=== PATIENT | male | born 1990 | race Caucasian/White ===

== ENCOUNTER 2017-11-09 00:26 | Emergency (ER) | payer BC ==
--- NOTE | 2017-11-09 00:59 | EDM.PDOC ---
ED HPI GENERAL MEDICAL PROBLEM - General Chief Complaint: ENT Problem Stated Complaint: BLOCKAGE IN RT EAR & DIFFICULTY BREATHING Time Seen by Provider: 11/09/17 00:55 - History of Present Illness INITIAL COMMENTS - FREE TEXT/NARRATIVE: HISTORY AND PHYSICAL: History of present illness: Patient 27-year-old male sensory concern of right ear pain denies other concern denies trauma Review of systems: As per history of present illness and below otherwise all systems reviewed and negative. Past medical history: As per history of present illness and as reviewed below otherwise noncontributory. Surgical history: As per history of present illness and as reviewed below otherwise noncontributory. Social history: No reported history of drug or alcohol abuse. Family history: As per history of present illness and as reviewed below otherwise noncontributory. Physical exam: HEENT: Atraumatic, normocephalic, pupils reactive, negative for conjunctival pallor or scleral icterus, mucous membranes moist, throat clear, neck supple, nontender, trachea midline. TM injected with ethmoid reflex external auditory canal also noted to be inflamed and injected Lungs: Clear to auscultation, breath sounds equal bilaterally, chest nontender. Heart: S1S2, regular, negative for clicks, rubs, or JVD. Abdomen: Soft, nondistended, nontender. Negative for masses or hepatosplenomegaly. Negative for costovertebral tenderness. Pelvis: Stable nontender. Genitourinary: Deferred. Rectal: Deferred. Extremities: Atraumatic, negative for cords or calf pain. Neurovascular unremarkable. Neuro: Awake, alert, oriented. Cranial nerves II through XII unremarkable. Cerebellum unremarkable. Motor and sensory unremarkable throughout. Exam nonfocal. Diagnostics: None Therapeutics: None Impression: #1 right otalgia #2 right otitis media/externa Definitive disposition and diagnosis as appropriate pending reevaluation and review of above. Ear Pain Score (Numeric/FACES): 5 - Related Data Allergies Allergy/AdvReac Type Severity Reaction Status Date / Time No Known Allergies Allergy Verified 11/09/17 00:40 Home Meds: Home Meds . [No Known Home Meds] 11/09/17 [History] Past Medical History - Past Health History Medical/Surgical History: Denies Medical/Surgical History Social & Family History - Tobacco Use Smoking Status *Q: Never Smoker ED ROS GENERAL - Review of Systems Review Of Systems: ROS reveals no pertinent complaints other than HPI. ED EXAM, GENERAL - Physical Exam Exam: See Below (See dictation) Course - Vital Signs Last Recorded V/S: Last Vital Signs Temp 36.8 C 11/09/17 00:38 Pulse 98 11/09/17 00:38 Resp 20 11/09/17 00:38 BP 162/83 H 11/09/17 00:38 Pulse Ox 99 11/09/17 00:38 Departure - Departure Time of Disposition: 00:58 Disposition: Home, Self-Care 01 Condition: Good Clinical Impression: Otitis externa - Discharge Information Referrals: PCP,None [Primary Care Provider] - Additional Instructions: The following information is given to patients seen in the emergency department who are being discharged to home. This information is to outline your options for follow-up care. We provide all patients seen in our emergency department with a follow-up referral. The need for follow-up, as well as the timing and circumstances, are variable depending upon the specifics of your emergency department visit. If you don't have a primary care physician on staff, we will provide you with a referral. We always advise you to contact your personal physician following an emergency department visit to inform them of the circumstance of the visit and for follow-up with them and/or the need for any referrals to a consulting specialist. The emergency department will also refer you to a specialist when appropriate. This referral assures that you have the opportunity for followup care with a specialist. All of these measure are taken in an effort to provide you with optimal care, which includes your followup. Under all circumstances we always encourage you to contact your private physician who remains a resource for coordinating your care. When calling for followup care, please make the office aware that this follow-up is from your recent emergency room visit. If for any reason you are refused follow-up, please contact the [facility] emergency department at and asked to speak to the emergency department charge nurse. MALLORIE [facility] [address] [place] [id number] Augmentin/Cortisporin as prescribed Motrin/Tylenol as directed follow-up primary care above called schedule routine appointment return as needed as discussed
== END 2017-11-09 01:09 | disposition home or self-care (01) ==
LOC: MW.ED 00:26
DX: H60.91 Unspecified otitis externa, right ear (principal)
CPT/HCPCS: 99282

== ENCOUNTER 2020-09-15 19:47 | Emergency (ER) | payer BC ==
[2020-09-15] MEDS ORDERED: Sodium Chloride 0.9% 10 ML Syringe FLUSH PRN (19:48)
[2020-09-15] MEDS ORDERED: Sodium Chloride 0.9% 2.5 ML Syringe FLUSH PRN (19:48)
[2020-09-15] MEDS ORDERED: cloNIDine 0.1 MG Tab PO ONE (19:56)
[2020-09-15] MEDS ORDERED: Sodium Chloride 0.9% 1,000 ML IV ONE (19:56)
--- NOTE | 2020-09-15 20:04 | EDM.PDOC ---
ED HPI GENERAL MEDICAL PROBLEM - General Chief Complaint: General Stated Complaint: HIGH BLOOD PRESSURE Time Seen by Provider: 09/15/20 19:53 Source of Information: Reports: Patient History Limitations: Reports: No Limitations - History of Present Illness INITIAL COMMENTS - FREE TEXT/NARRATIVE: HISTORY AND PHYSICAL: History of present illness: Patient is a 30-year-old male who presents to the emergency room with complaints of dizziness, chest pain and elevated blood pressure x2 days. He states he received the first dose of 2 of the uShip COVID-19 vaccine yesterday. Appro ximately 20 minutes after he started to feel dizzy and that his blood pressure was elevated. He states he has had past intermittent elevated blood pressure readings in which he will take Catapres for. He states this medication is available [id number] [place], has this medication available for when he needs it. He is adamant that he does not have a history of high blood pressure, "just occasional". After he took the Catapres his symptoms resolved. He felt improved. He was able to work all day today. 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 Instead of going home to take his Catapres he came to the emergency room. Denies any light sensitivity or noise sensitivity. Patient denies any fever, chills, change in vision, syncope or near syncope. Denies any chest pain, back pain, shortness of breath or cough. Denies any abdominal pain, nausea, vomiting, diarrhea, constipation or dysuria. Has not noted any blood in urine or stool. Patient has been eating and drinking appropriately. Review of systems: As per history of present illness and below otherwise all systems reviewed and negative. Past medical history: As per history of present illness and as reviewed below otherwise noncontributory. Surgical history: As per history of present illness and as reviewed below otherwise noncontributory. Social history: See social history for further information Family history: As per history of present illness and as reviewed below otherwise noncontributory. Physical exam: General: Well developed and well nourished 30 year old male. Alert and orientated x 3. Nontoxic in appearance and in no acute distress. Vital signs are stable and have been reviewed by me. Nursing notes were reviewed. HEENT: Atraumatic, normocephalic, pupils equal and reactive bilaterally, negative for conjunctival pallor or scleral icterus, mucous membranes moist, TMs normal bilaterally, throat clear, neck supple, nontender, trachea midline. No drooling or trismus noted. No meningeal signs. No hot potato voice noted. Lungs: Clear to auscultation bilaterally. No wheezes, rales, or rhonchi. Chest nontender. Normal work of breathing, no accessory muscles used. Heart: S1S2, regular rate and rhythm without overt murmur, gallops, or rubs. No JVD. No peripheral edema Abdomen: Soft, nondistended, nontender. Normoactive bowel sounds. Negative for masses or costovertebral tenderness. Pelvis: Stable nontender. Genitourinary/Rectal: Deferred. Skin: Intact, warm, dry. No lesions or rashes noted. Hematologic: No petechiae or purpra. Mucosa appropriate color and normal nail bed color and refill. Extremities: Atraumatic, moves all extremities per self without difficulty or deficits, negative for cords or calf pain. Neurovascular unremarkable. Neuro: Awake, alert, oriented. Cranial nerves II through XII unremarkable. Cerebellum unremarkable. Motor and sensory unremarkable throughout. Exam nonfocal. Psychiatric: Mood and affect are appropriate. Normal thought process. Answering questions appropriately. Notes: *This patient was seen and evaluated during the 2019 SARS-CoV-2 novel c oronavirus pandemic period. Community viral transmission is ongoing at time of this encounter and the emergency department is operating under pandemic response procedures. Patient's lab work is unremarkable. His blood pressure has improved since being here. He states he feels better since the IV fluids. We did discuss establishing care with a primary care provider to have his blood pressure r eevaluated as he is adamant he does not have a history of hypertension nor wanting treatment for this. I did inform him that it could be elevated today due to him not feeling well but he should continue to monitor this. I have talked with the patient about today's findings, in addition to providing specific details for plan of care. Reassessment at the time of disposition demonstrates that the patient is in no acute distress. The patient is stable for discharge, counseling was provided and we discussed in great detail signs and symptoms that would prompt them to return to the Emergency Department. Medication, follow up and supportive care measures were reviewed and discussed. Voices understanding and is agreeable to plan of care. Denies any further questions or concerns at this time. Diagnostics: CBC, CMP, troponin, EKG, chest x-ray, head CT Therapeutics: IV fluids, catapress Prescription: Declines Impression: Post vaccine adverse effects Plan: 1. You were evaluated today on an emergent basis. Your lab work, EKG, chest x- ray and head CT are normal. Continue to occasionally monitor your blood pressure as we discussed. If you continue to have elevated readings, consider going to primary care to have this treated. 2. You can alternate Tylenol and ibuprofen as needed for pain and fever management. 3. We encourage you to follow up with your primary care provider and/or r ecommended specialist in the next few days for re-evaluation and further care/management. 4. If your symptoms should worsen, new symptoms develop or any of the signs and symptoms we discussed should arise please return to the emergency room or call 911 (if needed). Definitive disposition and diagnosis as appropriate pending reevaluation and review of above. chest pain Pain Score (Numeric/FACES): 6 - Related Data Allergies Allergy/AdvReac Type Severity Reaction Status Date / Time No Known Allergies Allergy Verified 09/15/20 19:49 Home Meds: Home Meds . [No Known Home Meds] 11/09/17 [History] Past Medical History - Past Health History Medical/Surgical History: Denies Medical/Surgical History HEENT History: Reports: None Cardiovascular History: Reports: None Respiratory History: Reports: None Gastrointestinal History: Reports: None Genitourinary History: Reports: None Musculoskeletal History: Reports: None Neurological History: Reports: None Psychiatric History: Reports: None Endocrine/Metabolic History: Reports: None Insulin Pump Model and Unarmed Security Guard: None Hematologic History: Reports: None Immunologic History: Reports: None Oncologic (Cancer) History: Reports: None Dermatologic History: Reports: None - Infectious Disease History Infectious Disease History: Reports: None - Past Surgical History Head Surgeries/Procedures: Reports: None Social & Family History - Tobacco Use Tobacco Use Comment: states stop 2 weeks ago - Recreational Drug Use Recreational Drug Use: No ED ROS GENERAL - Review of Systems Review Of Systems: Comprehensive ROS is negative, except as noted in HPI. ED EXAM, GENERAL - Physical Exam Exam: See Below (See dication) Course - Vital Signs Last Recorded V/S: Last Vital Signs Temp 97.4 F 09/15/20 19:49 Pulse 90 09/15/20 19:49 Resp 18 09/15/20 19:49 BP 152/96 H 09/15/20 20:04 Pulse Ox 97 09/15/20 19:49 - Orders/Labs/Meds Orders: Active Orders 24 hr Category Date Time Status EKG Documentation Completion [RC] STAT Care 09/15/20 19:48 Active Chest 1V Frontal [CR] Stat Exams 09/15/20 19:48 Taken Head wo Cont [CT] Stat Exams 09/15/20 20:09 Taken Sodium Chloride 0.9% [Normal Saline] 1,000 ml Med 09/15/20 19:56 Active IV STAT Sodium Chloride 0.9% [Saline Flush] Med 09/15/20 19:48 Active 10 ml FLUSH ASDIRECTED PRN Sodium Chloride 0.9% [Saline Flush] Med 09/15/20 19:48 Active 2.5 ml FLUSH ASDIRECTED PRN Saline Lock Insert [OM.PC] Stat Oth 09/15/20 19:48 Ordered Medication Orders Sodium Chloride (Normal Saline) 1,000 mls @ 999 mls/hr IV STAT ONE Stop: 09/15/20 20:56 Last Admin: 09/15/20 20:04 Dose: 999 mls/hr Documented by: [email or web address] Sodium Chloride (Sodium Chloride 0.9% 10 Ml Syringe) 10 ml FLUSH ASDIRECTED PRN PRN Reason: Keep Vein Open Last Admin: 09/15/20 19:54 Dose: 10 ml Documented by: CASIMIRO Sodium Chloride (Sodium Chloride 0.9% 2.5 Ml Syringe) 2.5 ml FLUSH ASDIRECTED PRN PRN Reason: Keep Vein Open Last Admin: 09/15/20 19:54 Dose: 2.5 ml Documented by: CASIMIRO Labs: Laboratory Tests 09/15/20 09/15/20 Range/Units 19:50 19:50 WBC 12.62 H (4.0-11.0) K/uL RBC 4.93 (4.50-5.90) M/uL Hgb 15.1 (13.0-17.0) g/dL Hct 43.2 (38.0-50.0) % MCV 87.6 (80.0-98.0) fL MCH 30.6 (27.0-32.0) pg MCHC 35.0 (31.0-37.0) g/dL RDW Std Deviation 39.1 (28.0-62.0) fl RDW Coeff of Anuj 12 (11.0-15.0) % Plt Count 373 (150-400) K/uL MPV 9.10 (7.40-12.00) fL Neut % (Auto) 38.4 L (48.0-80.0) % Lymph % (Auto) 47.1 H (16.0-40.0) % [place] % (Auto) 12.6 (0.0-15.0) % Eos % (Auto) 1.5 (0.0-7.0) % Baso % (Auto) 0.4 (0.0-1.5) % Neut # (Auto) 4.9 (1.4-5.7) K/uL Lymph # (Auto) 5.9 H (0.6-2.4) K/uL [place] # (Auto) 1.6 H (0.0-0.8) K/uL Eos # (Auto) 0.2 (0.0-0.7) K/uL Baso # (Auto) 0.1 (0.0-0.1) K/uL Nucleated RBC % 0.0 /100WBC Nucleated RBCs # 0 K/uL Sodium 139 (136-148) mmol/L Potassium 3.3 L (3.5-5.1) mmol/L Chloride 101 (98-107) mmol/L Carbon Dioxide 26.0 (21.0-32.0) mmol/L BUN 20 H (7.0-18.0) mg/dL Creatinine 1.1 (0.8-1.3) mg/dL Est Cr Clr Drug Dosing 106.80 mL/min Estimated GFR (MDRD) > 60.0 ml/min Glucose 105 (74-106) mg/dL Calcium 8.1 L (8.5-10.1) mg/dL Total Bilirubin 0.4 (0.2-1.0) mg/dL AST 20 (15-37) IU/L ALT 44 (14-63) IU/L Alkaline Phosphatase 96 (46-116) U/L Troponin I < 0.050 (0.000-0.056) ng/mL Total Protein 7.7 (6.4-8.2) g/dL Albumin 4.0 (3.4-5.0) g/dL Globulin 3.7 (2.6-4.0) g/dL Albumin/Globulin Ratio 1.1 (0.9-1.6) Meds: Medications Generic Name Dose Route Start Last Admin Trade Name Freq PRN Reason Stop Dose Admin Sodium Chloride 1,000 mls @ 999 mls/hr 09/15/20 19:56 09/15/20 20:04 Normal Saline IV 09/15/20 20:56 999 mls/hr STAT ONE Administration Sodium Chloride 10 ml 09/15/20 19:48 09/15/20 19:54 Sodium Chloride 0.9% 10 Ml Syringe FLUSH 10 ml ASDIRECTED PRN Administration Keep Vein Open Sodium Chloride 2.5 ml 09/15/20 19:48 09/15/20 19:54 Sodium Chloride 0.9% 2.5 Ml Syringe FLUSH 2.5 ml ASDIRECTED PRN Administration Keep Vein Open Discontinued Medications Generic Name Dose Route Start Last Admin Trade Name Freq PRN Reason Stop Dose Admin Clonidine HCl 0.1 mg 09/15/20 19:56 09/15/20 20:04 Clonidine 0.1 Mg Tab PO 09/15/20 19:57 0.1 mg ONETIME ONE Administration Departure - Departure Time of Disposition: 20:52 Disposition: Home, Self-Care 01 Clinical Impression: Fatigue after COVID-19 vaccination - Discharge Information Forms: ED Department Discharge Additional Instructions: The following information is given to patients seen in the emergency department who are being discharged to home. This information is to outline your options for follow-up care. We provide all patients seen in our emergency department with a follow-up referral. The need for follow-up, as well as the timing and circumstances, are variable depending upon the specifics of your emergency department visit. If you don't have a primary care physician on staff, we will provide you with a referral. We always advise you to contact your personal physician following an emergency department visit to inform them of the circumstance of the visit and for follow-up with them and/or the need for any referrals to a consulting specialist. The emergency department will also refer you to a specialist when appropriate. This referral assures that you have the opportunity for follow-up care with a specialist. All of these measure are taken in an effort to provide you with optimal care, which includes your follow-up. Under all circumstances we always encourage you to contact your private physician who remains a resource for coordinating your care. When calling for follow-up care, please make the office aware that this follow-up is from your recent emergency room visit. If for any reason you are refused follow-up, please contact the [facility] Emergency Department at and asked to speak to the emergency department charge nurse. [facility] [address] [place] [id number] [facility] [address] [place] [id number] Thank you for choosing the [facility] emergency department in [place] for your medical needs today. It was a pleasure caring for you. Today you were seen in the emergency department for elevated BP, chest pain, and headache. 1. You were evaluated today on an emergent basis. Your lab work, EKG, chest x- ray and head CT are normal. Continue to occasionally monitor your blood pressure as we discussed. If you continue to have elevated readings, consider going to primary care to have this treated. 2. You can alternate Tylenol and ibuprofen as needed for pain and fever management. 3. We encourage you to follow up with your primary care provider and/or recommended specialist in the next few days for re-evaluation and further care /management. 4. If your symptoms should worsen, new symptoms develop or any of the signs and symptoms we discussed should arise please return to the emergency room or call 911 (if needed). Sepsis Event Note (ED) - Evaluation Sepsis Screening Result: No Definite Risk - Focused Exam Vital Signs: Vital Signs Temp Pulse Resp BP BP Pulse Ox 09/15/20 20:04 152/96 H 09/15/20 19:49 97.4 F 90 18 165/106 H 97 - My Orders Last 24 Hours: My Active Orders 09/15/20 19:48 EKG Documentation Completion [RC] STAT Chest 1V Frontal [CR] Stat Sodium Chloride 0.9% [Saline Flush] 10 ml FLUSH ASDIRECTED PRN Sodium Chloride 0.9% [Saline Flush] 2.5 ml FLUSH ASDIRECTED PRN Saline Lock Insert [OM.PC] Stat 09/15/20 19:56 Sodium Chloride 0.9% [Normal Saline] 1,000 ml IV STAT 09/15/20 20:09 Head wo Cont [CT] Stat - Assessment/Plan Last 24 Hours: My Active Orders 09/15/20 19:48 EKG Documentation Completion [RC] STAT Chest 1V Frontal [CR] Stat Sodium Chloride 0.9% [Saline Flush] 10 ml FLUSH ASDIRECTED PRN Sodium Chloride 0.9% [Saline Flush] 2.5 ml FLUSH ASDIRECTED PRN Saline Lock Insert [OM.PC] Stat 09/15/20 19:56 Sodium Chloride 0.9% [Normal Saline] 1,000 ml IV STAT 09/15/20 20:09 Head wo Cont [CT] Stat
--- NOTE | 2020-09-15 20:14 | PCM.EKG ---
#1 Interpretation EKG Interpretation Comments: EKG: As interpreted by ER physician: Mikala: Nonspecific ST-T wave abnormalities Normal axis No evidence of ST elevation IA Normal sinus rhythm heart rate of 73
[2020-09-15 20:28] LABS: BLOOD UREA NITROGEN,BUN 20 mg/dL (7.0-18.0); CHLORIDE,CL 101 mmol/L (98-107); GLUCOSE RANDOM 105 mg/dL (74-106); POTASSIUM,K 3.3 mmol/L (3.5-5.1); SODIUM,NA 139 mmol/L (136-148)
--- NOTE | 2020-09-15 20:51 | CT ---
INDICATION: Headache TECHNIQUE: CT head without contrast. COMPARISON: None FINDINGS: CSF spaces: Within normal limits for age. Brain parenchyma: The madera-white differentiation is normal. No sign of mass, hemorrhage, or midline shift. Skull base and calvarium: The visualized paranasal sinuses and mastoid air cells demonstrate no acute or significant findings. The visualized orbits are grossly unremarkable. No skull fractures. IMPRESSION: Unremarkable noncontrast head CT. Please note that all CT scans at this facility use dose modulation, iterative reconstruction, and/or weight-based dosing when appropriate to reduce radiation dose to as low as reasonably achievable. Dictated by Nehal Mendoza MD @ 09/15/2020 8:50:[address] Nehal Mendoza @ Sep 15 2020 8:50PM
--- NOTE | 2020-09-15 20:52 | CR ---
INDICATION: Chest pain TECHNIQUE: Chest radiograph 1 view COMPARISON: None FINDINGS: Mediastinum: The mediastinum is normal in appearance. The heart silhouette is normal in size and morphology. Lung: Both lungs are unremarkable in appearance. No sign of pleural effusion seen. No pneumothorax is identified. Bone and Soft tissue: Unremarkable for age. IMPRESSION: 1. No acute cardiopulmonary disease is seen. Dictated by: Adrian Delaney MD @ 09/15/2020 20:49:44 (Electronically Signed)
== END 2020-09-15 21:00 | disposition home or self-care (01) ==
LOC: MW.ED 19:47
DX: R53.83 Other fatigue (principal); T50.B95A Adverse effect of other viral vaccines, initial encounter
CPT/HCPCS: 70450; 71045; 80053; 84484; 85025; 93005; 99285; A9270; J7030; 93010; 99283

== ENCOUNTER 2020-09-19 16:08 | Emergency (ER) | payer BC ==
[2020-09-19 17:07] LABS: BLOOD UREA NITROGEN,BUN 24 mg/dL (7.0-18.0); CARBON DIOXIDE,CO2 29.9 mmol/L (21.0-32.0); CHLORIDE,CL 99 mmol/L (98-107); GLUCOSE RANDOM 105 mg/dL (74-106); POTASSIUM,K 4.3 mmol/L (3.5-5.1); SODIUM,NA 138 mmol/L (136-148)
[2020-09-19] MEDS ORDERED: amLODIPine 5 MG Tab PO ONE (17:55)
[2020-09-19] MEDS ORDERED: Famotidine 20 MG Tab PO ONE (17:56)
[2020-09-19] MEDS ORDERED: Alum Hydrox/Mag Hydrox/Simeth 15 ML, Lidocaine 2% 5 ML PO ONE ×2 (17:56)
--- NOTE | 2020-09-19 17:59 | EDM.PDOC ---
ED HPI GENERAL MEDICAL PROBLEM - General Chief Complaint: General Stated Complaint: chest pain Time Seen by Provider: 09/19/20 17:15 - History of Present Illness INITIAL COMMENTS - FREE TEXT/NARRATIVE: CHIEF COMPLAINT(S): Chest pain HISTORY OF PRESENT ILLNESS: This is a 30-year-old man with a recent evaluation for chest pain who was diagnosed with hypertension who comes to the emergency department with a chief complaint of chest pain. The patient states that he followed our recommendations and followed up with primary care physician. He states that he went to the appointment and given the chest pain and the left- sided numbness they sent him back to the emergency department. He states that since discharge he has had intermittent chest pain which he describes as sharp and short-lived lasting a couple of seconds. He rates this pain as 4-5 out of 10. He denies any associated shortness of breath, nausea, vomiting, diaphoresis. He states that his symptoms mainly happen at work. 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 He states that he intermittently is experiencing left-sided body numbness and denies any trouble walking, speaking, or swallowing. He states that he is currently asymptomatic and is only here because he was told to come to the emergency department. He states that they did not give him his blood pressure medication at the primary care clinic. In addition he is concerned because this started after his first Pfizer vaccine. REVIEW OF SYSTEMS: Constitutional: Denies fever, chills. Eyes: Denies eye pain Ears, Nose, Mouth, & Throat: Denies earache Cardiovascular: Denies positive for intermittent chest pain, Respiratory: Denies shortness of breath Gastrointestinal: Denies Nausea, vomiting, diarrhea, hematochezia. Genitourinary: Denies hematuria Skin:Denies a rash MSK: Denies joint pain Neurological: Positive for left-sided body numbness denies blurred vision, numbness, tingling, weakness Psychiatric: Denies depression PAST MEDICAL HISTORY: As per history of present illness and as reviewed below otherwise noncontributory. SURGICAL HISTORY: As per history of present illness and as reviewed below otherwise noncontributory. SOCIAL HISTORY: As per history of present illness and as reviewed below otherwise noncontributory. FAMILY HISTORY: As per history of present illness and as reviewed below otherwise noncontributory. EXAMINATION OF ORGAN SYSTEMS/BODY AREAS: Constitutional: Blood pressure is 151/88, heart rate 72, respiratory rate 18 with an oxygen saturation 97% on room air. Temperature 36.4 General: Overall well-appearing man who is in no acute distress Psychiatric: Appropriate mood and affect. Eyes: No scleral icterus or conjunctival erythema pupils are equal round reactive to light. Extraocular movements intact. No vertical horizontal nystagmus. ENMT: Moist mucous membranes. No pharyngeal erythema Cardiovascular: Regular, rate, and rhythm. No gallops, murmurs, or rubs. Bilateral upper extremity pulses symmetric and intact. No peripheral edema. No JVD. Respiratory: Lungs clear to auscultation bilaterally. No wheezes, rales, or rhonchi. Gastrointestinal: Soft, non-tender, non-distended. Normoactive bowel sounds Genitourinary: No suprapubic tenderness Musculoskeletal: Normal range of motion. Skin: No lesions or abrasions. Neurological: AOx4. CN grossly intact. Stregth 5/5 in bilateral upper and lower extremity. Sensation is intact bilaterally in upper and lower extremity. Gait appears normal. Finger to nose, heel to hale, rapid alternating movements intact. MEDICAL DECISION MAKING AND COURSE IN THE ED WITH INTERPRETATION/REVIEW OF DIAGNOSTIC STUDIES: This is a 30-year-old man and with a past medical history of recently diagnosed hypertension who comes to the emergency department with intermittent chest pain and left-sided numbness who also reports some anxiety after receiving his Pfizer vaccine. At this time the patient is mildly hypertensive and his neurological exam is completely normal. I did review the patient's record and he did have a CT head and a cardiac work-up all of which were normal. At this time we did obtain a repeat EKG which not reveal any acute signs of ischemia. He did not want a repeat chest x-ray. I do not believe repeat labs at this time are indicated as the patient is well-appearing and is low risk. At this time I did contact poison control to discuss side effects of anhydrous ammonia. They stated that with anhydrous ammonia that the symptoms are likely respiratory such as burning in the eyes, shortness of breath. They state that there is no known cardiac or neurological side effects. At this time I do believe his symptoms are likely secondary to anxiety and hypertension that is uncontrolled. We we will provide the patient with amlodipine 5 mg. I did discuss with him at this time that he should continue to take the blood pressure medication follow-up with the primary care physician. I discussed that if he had any new or worsening symptoms he should return to the emergency department. He was amenable discharge at this time and had no further questions. In addition I did discuss with patient we did place him on the quick cardiac follow-up list. I did provide him with the contact information to make an appointment. DISPOSITION: The patient was discharged home in stable condition. The patient will follow up with primary care physician CONDITION: Fair PROCEDURES: None FINAL IMPRESSION(S)/DIAGNOSES: 1. Acute atypical chest pain 2. Acute left-sided paresthesias 3. Hypertension Lew Cordero M.D. lungs and heart Pain Score (Numeric/FACES): 8 - Related Data Allergies Allergy/AdvReac Type Severity Reaction Status Date / Time No Known Allergies Allergy Verified 09/15/20 19:49 Home Meds: Home Meds Famotidine [Pepcid] 40 mg PO BEDTIME #14 tablet 09/19/20 [Rx] amLODIPine [Norvasc] 5 mg PO DAILY #30 tab 09/19/20 [Rx] Past Medical History - Past Health History Medical/Surgical History: Denies Medical/Surgical History HEENT History: Reports: None Cardiovascular History: Reports: None Respiratory History: Reports: None Gastrointestinal History: Reports: None Genitourinary History: Reports: None Musculoskeletal History: Reports: None Neurological History: Reports: None Psychiatric History: Reports: None Endocrine/Metabolic History: Reports: None Insulin Pump Model and Airline Operations Agent: None Hematologic History: Reports: None Immunologic History: Reports: None Oncologic (Cancer) History: Reports: None Dermatologic History: Reports: None - Infectious Disease History Infectious Disease History: Reports: None - Past Surgical History Head Surgeries/Procedures: Reports: None ED ROS GENERAL - Review of Systems Review Of Systems: See Below ED EXAM, GENERAL - Physical Exam Exam: See Below Course - Vital Signs Last Recorded V/S: Last Vital Signs Temp 36.4 C 09/19/20 16:23 Pulse 78 09/19/20 18:17 Resp 17 09/19/20 18:17 BP 141/95 H 09/19/20 18:34 Pulse Ox 97 09/19/20 18:17 - Orders/Labs/Meds Labs: Laboratory Tests 09/19/20 09/19/20 Range/Units 16:31 16:31 WBC 11.76 H (4.0-11.0) K/uL RBC 5.18 (4.50-5.90) M/uL Hgb 15.8 (13.0-17.0) g/dL Hct 45.3 (38.0-50.0) % MCV 87.5 (80.0-98.0) fL MCH 30.5 (27.0-32.0) pg MCHC 34.9 (31.0-37.0) g/dL RDW Std Deviation 38.3 (28.0-62.0) fl RDW Coeff of Anuj 12 (11.0-15.0) % Plt Count 395 (150-400) K/uL MPV 9.10 (7.40-12.00) fL Neut % (Auto) 54.3 (48.0-80.0) % Lymph % (Auto) 35.5 (16.0-40.0) % [place] % (Auto) 8.8 (0.0-15.0) % Eos % (Auto) 1.1 (0.0-7.0) % Baso % (Auto) 0.3 (0.0-1.5) % Neut # (Auto) 6.4 H (1.4-5.7) K/uL Lymph # (Auto) 4.2 H (0.6-2.4) K/uL [place] # (Auto) 1.0 H (0.0-0.8) K/uL Eos # (Auto) 0.1 (0.0-0.7) K/uL Baso # (Auto) 0.0 (0.0-0.1) K/uL Nucleated RBC % 0.0 /100WBC Nucleated RBCs # 0 K/uL Sodium 138 (136-148) mmol/L Potassium 4.3 (3.5-5.1) mmol/L Chloride 99 (98-107) mmol/L Carbon Dioxide 29.9 (21.0-32.0) mmol/L BUN 24 H (7.0-18.0) mg/dL Creatinine 1.2 (0.8-1.3) mg/dL Est Cr Clr Drug Dosing TNP Estimated GFR (MDRD) > 60.0 ml/min Glucose 105 (74-106) mg/dL Calcium 8.8 (8.5-10.1) mg/dL Total Bilirubin 0.3 (0.2-1.0) mg/dL AST 23 (15-37) IU/L ALT 44 (14-63) IU/L Alkaline Phosphatase 83 (46-116) U/L Troponin I < 0.050 (0.000-0.056) ng/mL Total Protein 8.2 (6.4-8.2) g/dL Albumin 4.2 (3.4-5.0) g/dL Globulin 4.0 (2.6-4.0) g/dL Albumin/Globulin Ratio 1.0 (0.9-1.6) Meds: Medications Discontinued Medications Generic Name Dose Route Start Last Admin Trade Name Freq PRN Reason Stop Dose Admin Amlodipine Besylate 5 mg 09/19/20 17:55 09/19/20 18:13 Amlodipine 5 Mg Tab PO 09/19/20 17:56 5 mg ONETIME ONE Administration Al Hydroxide/Mg Hydroxide 15 0 ml 09/19/20 17:56 09/19/20 18:12 ml/ Lidocaine HCl 5 ml PO 09/19/20 17:57 1 each ONETIME ONE Administration Famotidine 20 mg 09/19/20 17:56 09/19/20 18:13 Famotidine 20 Mg Tab PO 09/19/20 17:57 20 mg ONETIME ONE Administration Departure - Departure Time of Disposition: 17:58 Disposition: Home, Self-Care 01 Condition: Fair Clinical Impression: Hypertension - Discharge Information *PRESCRIPTION DRUG MONITORING PROGRAM REVIEWED*: No *COPY OF PRESCRIPTION DRUG MONITORING REPORT IN PATIENT MARIA ALEJANDRA: No Prescriptions: amLODIPine [Norvasc] 5 mg PO DAILY #30 tab Famotidine [Pepcid] 40 mg PO BEDTIME #14 tablet Instructions: Nonspecific Chest Pain, Adult, [id number], Hypertension, Adult, [id number] Referrals: Shobha Serrano MD [Primary Care Provider] - Danae Hale MD [Physician] - Forms: ED Department Discharge Additional Instructions: You evaluate today on an emergent basis. At this time your physical exam was normal and your blood pressure was mildly elevated. At this time I did contact the Poison Control Center regarding the exposure to ammonia. They stated that the symptoms you are experiencing are not typical. You mainly get respiratory symptoms from this exposure. We do recommend the use of a facemask while using this chemical. In addition I do recommend that you follow-up with cardiology within 3 to 5 days for further evaluation. Numbers provided below. Please take your medications as prescribed. If you have any new or worsening symptoms you are welcome to return to the emergency department. [facility] [address] [place] [address] [facility] [address] [place] [id number] The patient is informed of any results of their evaluation and diagnostic workup and all questions are answered. They are given discharge instructions and return precautions. The patient is stable for discharge. The patient states they understand and agree with the plan and that they will return if their symptoms get worse or if they have any new concerns. The following information is given to patients seen in the emergency department who are being discharged to home. This information is to outline your options for follow-up care. We provide all patients seen in our emergency department with a follow-up referral. The need for follow-up, as well as the timing and circumstances, are variable depending upon the specifics of your emergency department visit. If you don't have a primary care physician on staff, we will provide you with a referral. We always advise you to contact your personal physician following an emergency department visit to inform them of the circumstance of the visit and for follow-up with them and/or the need for any referrals to a consulting specialist. The emergency department will also refer you to a specialist when appropriate. This referral assures that you have the opportunity for follow-up care with a specialist. All of these measure are taken in an effort to provide you with optimal care, which includes your follow-up. Under all circumstances we always encourage you to contact your private physician who remains a resource for coordinating your care. When calling for follow-up care, please make the office aware that this follow-up is from your recent emergency room visit. If for any reason you are refused follow-up, please contact the [facility] Emergency Department at and asked to speak to the emergency department charge nurse.
--- NOTE | 2020-09-19 19:52 | PCM.EKG ---
#1 Interpretation EKG Date: 09/19/20 Time: 16:20 Rhythm: NSR Rate (Beats/Min): 72 [place]: Normal P-Wave: Present QRS: Normal ST-T: Normal QT: Normal Comparison: No Change (09/15/20) EKG Interpretation Comments: sinus rhythm
== END 2020-09-19 18:34 | disposition home or self-care (01) ==
LOC: MW.ED 16:08
DX: I10 Essential (primary) hypertension (principal); R20.2 Paresthesia of skin; Z79.899 Other long term (current) drug therapy
CPT/HCPCS: 36415; 80053; 84484; 85025; 93005; 99285; A9270; 99283

== ENCOUNTER 2020-09-29 09:53 | Emergency (ER) | payer BC ==
[2020-09-29] MEDS ORDERED: Sodium Chloride 0.9% 2.5 ML Syringe FLUSH PRN (09:54)
[2020-09-29] MEDS ORDERED: Aspirin 81 MG Tab.Chew PO ONE (09:54)
[2020-09-29] MEDS ORDERED: Sodium Chloride 0.9% 10 ML Syringe FLUSH PRN (09:54)
--- NOTE | 2020-09-29 10:06 | EDM.PDOC ---
ED HPI GENERAL MEDICAL PROBLEM - General Stated Complaint: DIFF BREATHING, HIGH B/P Time Seen by Provider: 09/29/20 09:54 Source of Information: Reports: Patient - History of Present Illness INITIAL COMMENTS - FREE TEXT/NARRATIVE: 30 yo male presenting with left sided chest pain and left-sided neck pain. The chest discomfort has been going on for 2 weeks intermittently. Came back again last night. Now he feels like the left side of his face/ears/jaw/neck are painful and appear swollen. No fevers or chills. He does report his blood pressure was elevated before coming in. Prior history of elevated blood pressure but stopped taking the amlodipine because he did not feel that it helped lower his blood pressure. No cough or shortness of breath. He does report that the chest discomfort started after receiving his Covid shot 2 weeks ago. Onset: Today left face Pain Score (Numeric/FACES): 7 - Related Data Allergies Allergy/AdvReac Type Severity Reaction Status Date / Time No Known Allergies Allergy Verified 09/29/20 09:56 Home Meds: Home Meds Famotidine [Pepcid] 40 mg PO BEDTIME #14 tablet 09/19/20 [Rx] amLODIPine [Norvasc] 5 mg PO DAILY #30 tab 09/19/20 [Rx] Azithromycin [Zithromax] 250 mg PO DAILY #6 tab 09/29/20 [Rx] Past Medical History - Past Health History Medical/Surgical History: Denies Medical/Surgical History HEENT History: Reports: None Cardiovascular History: Reports: None Respiratory History: Reports: None Gastrointestinal History: Reports: None Genitourinary History: Reports: None Musculoskeletal History: Reports: None Neurological History: Reports: None Psychiatric History: Reports: None Endocrine/Metabolic History: Reports: None Insulin Pump Model and Water Main Installer Helper: None Hematologic History: Reports: None Immunologic History: Reports: None Oncologic (Cancer) History: Reports: None Dermatologic History: Reports: None - Infectious Disease History Infectious Disease History: Reports: None - Past Surgical History Head Surgeries/Procedures: Reports: None Social & Family History - Tobacco Use Tobacco Use Status *Q: Former Tobacco User (Quit 3 weeks ago) ED ROS GENERAL - Review of Systems Review Of Systems: See Below Constitutional: Reports: No Symptoms Respiratory: Reports: No Symptoms Cardiovascular: Reports: Chest Pain GI/Abdominal: Reports: No Symptoms Neurological: Reports: No Symptoms ED EXAM, GENERAL - Physical Exam Exam: See Below Exam Limited By: No Limitations General Appearance: Alert, WD/WN, No Apparent Distress Ears: Normal External Exam Nose: Normal Inspection Throat/Mouth: Normal Lips, Normal Teeth, Normal Oropharynx, Normal Voice, No Airway Compromise Head: Atraumatic, Facial Swelling (Mild, Left side of face) Neck: Full Range of Motion, Other (Mild tenderness left anterior neck. Mild swelling) Respiratory/Chest: No Respiratory Distress Cardiovascular: Regular Rate, Rhythm GI/Abdominal: Soft, Non-Tender Back Exam: Normal Inspection Extremities: Normal Inspection, Normal Range of Motion Neurological: Alert, Oriented, Normal Cognition Psychiatric: Normal Affect, Normal Mood Skin Exam: Warm, Dry, Intact, Normal Color, No Rash Lymphatic: Other (Left neck anterior tenderness, possible adenopathy) #1 Interpretation EKG Date: 09/29/20 Time: 09:49 Rhythm: NSR [place]: Normal P-Wave: Present QRS: Normal ST-T: Other (Nonspecific ST elevation, likely early repolarization) QT: Normal Course - Vital Signs Text/Narrative:: Neck pain, mild neck swelling, facial pain and swelling. Some mild dental pain. Chest pain ongoing for 2 weeks. EKG with no ischemia, troponin negative. CT neck shows no soft tissue mass nor focal area of infection. Vasculature appears patent with no clot. CT scan does show sinusitis. Symptoms have been ongoing for about 2 weeks and therefore will treat with antibiotics at this time as this may be bacterial. Last Recorded V/S: Last Vital Signs Temp 98 F 09/29/20 09:54 Pulse 62 09/29/20 11:45 Resp 17 09/29/20 11:45 BP 127/82 09/29/20 11:45 Pulse Ox 97 09/29/20 11:45 - Orders/Labs/Meds Orders: Active Orders 24 hr Category Date Time Status EKG Documentation Completion [RC] STAT Care 09/29/20 09:55 Active Sodium Chloride 0.9% [Saline Flush] Med 09/29/20 09:54 Active 10 ml FLUSH ASDIRECTED PRN Sodium Chloride 0.9% [Saline Flush] Med 09/29/20 09:54 Active 2.5 ml FLUSH ASDIRECTED PRN Saline Lock Insert [OM.PC] Stat Oth 09/29/20 09:54 Ordered Medication Orders Sodium Chloride (Sodium Chloride 0.9% 10 Ml Syringe) 10 ml FLUSH ASDIRECTED PRN PRN Reason: Keep Vein Open Last Admin: 09/29/20 10:20 Dose: 10 ml Documented by: ELDER Sodium Chloride (Sodium Chloride 0.9% 2.5 Ml Syringe) 2.5 ml FLUSH ASDIRECTED PRN PRN Reason: Keep Vein Open Last Admin: 09/29/20 10:20 Dose: 2.5 ml Documented by: ELDER Labs: Laboratory Tests 09/29/20 09/29/20 09/29/20 Range/Units 10:02 10:02 10:25 WBC 10.09 (4.0-11.0) K/uL RBC 5.09 (4.50-5.90) M/uL Hgb 15.5 (13.0-17.0) g/dL Hct 44.4 (38.0-50.0) % MCV 87.2 (80.0-98.0) fL MCH 30.5 (27.0-32.0) pg MCHC 34.9 (31.0-37.0) g/dL RDW Std Deviation 38.3 (28.0-62.0) fl RDW Coeff of Anuj 12 (11.0-15.0) % Plt Count 391 (150-400) K/uL MPV 9.20 (7.40-12.00) fL Neut % (Auto) 51.2 (48.0-80.0) % Lymph % (Auto) 40.6 H (16.0-40.0) % [place] % (Auto) 7.4 (0.0-15.0) % Eos % (Auto) 0.5 (0.0-7.0) % Baso % (Auto) 0.3 (0.0-1.5) % Neut # (Auto) 5.2 (1.4-5.7) K/uL Lymph # (Auto) 4.1 H (0.6-2.4) K/uL [place] # (Auto) 0.8 (0.0-0.8) K/uL Eos # (Auto) 0.1 (0.0-0.7) K/uL Baso # (Auto) 0.0 (0.0-0.1) K/uL Nucleated RBC % 0.0 /100WBC Nucleated RBCs # 0 K/uL INR 1.02 Sodium 139 (136-148) mmol/L Potassium 3.6 (3.5-5.1) mmol/L Chloride 101 (98-107) mmol/L Carbon Dioxide 27.6 (21.0-32.0) mmol/L BUN 16 (7.0-18.0) mg/dL Creatinine 1.0 (0.8-1.3) mg/dL Est Cr Clr Drug Dosing 117.48 mL/min Estimated GFR (MDRD) > 60.0 ml/min Glucose 119 H (74-106) mg/dL Calcium 9.6 (8.5-10.1) mg/dL Troponin I < 0.050 (0.000-0.056) ng/mL Meds: Medications Generic Name Dose Route Start Last Admin Trade Name Katy PRN Reason Stop Dose Admin Sodium Chloride 10 ml 09/29/20 09:54 09/29/20 10:20 Sodium Chloride 0.9% 10 Ml Syringe FLUSH 10 ml ASDIRECTED PRN Administration Keep Vein Open Sodium Chloride 2.5 ml 09/29/20 09:54 09/29/20 10:20 Sodium Chloride 0.9% 2.5 Ml Syringe FLUSH 2.5 ml ASDIRECTED PRN Administration Keep Vein Open Discontinued Medications Generic Name Dose Route Start Last Admin Trade Name Katy PRN Reason Stop Dose Admin Aspirin 324 mg 09/29/20 09:54 09/29/20 10:20 Aspirin 81 Mg Tab.Chew PO 09/29/20 09:55 324 mg ONETIME ONE Administration Iopamidol 75 ml 09/29/20 11:23 09/29/20 11:26 Iopamidol 755 Mg/Ml 500 Ml Multipack Bottle IVPUSH 09/29/20 11:24 75 ml ONETIME ONE Administration - Re-Assessments/Exams Free Text/Narrative Re-Assessment/Exam: 09/29/20 11:12 I was called to the bedside as the patient was declining CT scan because he was afraid of the cost. Discussed with the patient at length my recommendations for the CT scan and why we are ordering that, what pathology we are attempting to evaluate for and exclude, and risks of not having CT scan. Eventually he did agree to CT scan after discussing with a friend via telephone. 09/29/20 12:40 I re assessed the patient. He is in no acute distress. He is resting comfortably. His blood pressure is improved. Discussed the CT scan results including possible sinusitis. This would be consistent with the patient's symptoms as well. Discussed recommendation for antibiotics and outpatient blood pressure monitoring. He agrees with this plan. Departure - Departure Time of Disposition: 12:58 Disposition: Home, Self-Care 01 Clinical Impression: Hypertension Sinusitis Qualifiers: Sinusitis location: maxillary Chronicity: acute Prescriptions: Azithromycin [Zithromax] 250 mg PO DAILY #6 tab Instructions: Sinusitis, Adult, [id number], Hypertension, Adult, [id number], Preventing Hypertension, Managing Your Hypertension Referrals: PCP,None [Primary Care Provider] - Additional Instructions: Please take the antibiotics as prescribed. Return to the ER if you develop any worsening symptoms. You may check your blood pressure 1-2 times per day and keep a blood pressure log. Minimize stressors. Minimize salt intake. Practice meditation when you start to feel anxious. The following information is given to patients seen in the emergency department who are being discharged to home. This information is to outline your options for follow-up care. We provide all patients seen in our emergency department with a follow-up referral. The need for follow-up, as well as the timing and circumstances, are variable depending upon the specifics of your emergency department visit. If you don't have a primary care physician on staff, we will provide you with a referral. We always advise you to contact your personal physician following an emergency department visit to inform them of the circumstance of the visit and for follow-up with them and/or the need for any referrals to a consulting specialist. The emergency department will also refer you to a specialist when appropriate. This referral assures that you have the opportunity for follow-up care with a specialist. All of these measure are taken in an effort to provide you with optimal care, which includes your follow-up. Under all circumstances we always encourage you to contact your private physician who remains a resource for coordinating your care. When calling for fo llow-up care, please make the office aware that this follow-up is from your recent emergency room visit. If for any reason you are refused follow-up, please contact the [facility] Emergency Department at and asked to speak to the emergency department charge nurse. [facility] [address] [place] [address] [facility] [address] [place] [id number] Sepsis Event Note (ED) - Focused Exam Vital Signs: Vital Signs Temp Pulse Resp BP Pulse Ox 09/29/20 11:45 62 17 127/82 97 09/29/20 09:54 98 F 85 115/94 H 97 - My Orders Last 24 Hours: My Active Orders 09/29/20 09:54 Sodium Chloride 0.9% [Saline Flush] 10 ml FLUSH ASDIRECTED PRN Sodium Chloride 0.9% [Saline Flush] 2.5 ml FLUSH ASDIRECTED PRN Saline Lock Insert [OM.PC] Stat 09/29/20 09:55 EKG Documentation Completion [RC] STAT - Assessment/Plan Last 24 Hours: My Active Orders 09/29/20 09:54 Sodium Chloride 0.9% [Saline Flush] 10 ml FLUSH ASDIRECTED PRN Sodium Chloride 0.9% [Saline Flush] 2.5 ml FLUSH ASDIRECTED PRN Saline Lock Insert [OM.PC] Stat 09/29/20 09:55 EKG Documentation Completion [RC] STAT
[2020-09-29 10:45] LABS: BLOOD UREA NITROGEN,BUN 16 mg/dL (7.0-18.0); CARBON DIOXIDE,CO2 27.6 mmol/L (21.0-32.0); CHLORIDE,CL 101 mmol/L (98-107); GLUCOSE RANDOM 119 mg/dL (74-106); POTASSIUM,K 3.6 mmol/L (3.5-5.1); SODIUM,NA 139 mmol/L (136-148)
[2020-09-29] MEDS ORDERED: Iopamidol 755 MG/ML 500 ML Multipack Bottle IVPUSH ONE (11:23)
--- NOTE | 2020-09-29 12:21 | CT ---
INDICATION: Left-sided neck pain. Possible palpable mass. TECHNIQUE: CT images were acquired from the level of the frontal sinuses to the superior mediastinum at 2 mm collimation during infusion of iodinated contrast material. FINDINGS: There are several normal size lymph nodes within the upper jugular and spinal accessory lymph node chains bilaterally there is no dominant soft tissue mass cyst or abscess within the neck. The orbits are unremarkable. There is mild focal inflammatory mucosal thickening at the base of the left maxillary antrum. The other paranasal sinuses are clear. Rightward directed nasal septal curve and septal spur. The posterior nasal fossa, nasopharynx and oropharynx appear normal. A small solitary calcification within the right palatine tonsil consistent with chronic inflammation. Major salivary glands appear normal. The tongue base, epiglottis, hypopharynx, larynx and subglottic trachea appear normal. Thyroid gland appears normal. The cervical spine is unremarkable. No bony lesions nor paraspinal mass or abnormal fluid collection. IMPRESSION: 1. Normal size lymph nodes are scattered the jugular and spinal accessory lymph node chains bilaterally. Small solitary calcification right palatine tonsil consistent with chronic inflammation. 2. There is no worrisome soft tissue mass, abscess, cyst or paraspinal lesion. Please note that all CT scans at this facility use dose modulation, iterative reconstruction, and/or weight-based dosing when appropriate to reduce radiation dose to as low as reasonably achievable. Dictated by Hayden Garcia MD @ 09/29/2020 12:20:[address] Hayden Garcia @ Sep 29 2020 12:20PM
== END 2020-09-29 13:32 | disposition home or self-care (01) ==
LOC: MW.ED 09:53
DX: J01.00 Acute maxillary sinusitis, unspecified (principal); I10 Essential (primary) hypertension; Z87.891 Personal history of nicotine dependence
CPT/HCPCS: 36415; 70491; 80048; 84484; 85025; 85610; 93005; 99285; A9270; Q9967

== ENCOUNTER 2024-04-09 15:06 | Emergency (ER) | payer BC ==
[2024-04-09] MEDS: Lidocaine 1% 5 ML VIAL INJECT ONE (15:43)
[2024-04-09] MEDS: Diphtheria,Pertussis(Acell),Tetanus Vaccine 0.5 ML Syringe IM ONE (15:44)
== END 2024-04-09 16:14 | disposition home or self-care (01) ==
LOC: MW.ED 15:06
DX: S09.90XA Unspecified injury of head, initial encounter (principal); S01.111A Laceration without foreign body of right eyelid and periocular area, initial encounter; S01.112A Laceration without foreign body of left eyelid and periocular area, initial encounter; Z87.891 Personal history of nicotine dependence; W22.8XXA Striking against or struck by other objects, initial encounter; Z23 Encounter for immunization
CPT/HCPCS: 12011; 90471; 90715; 99282; 99282-25; J3490